=== PATIENT | female | born 1995 | race Caucasian/White ===

== ENCOUNTER 2024-03-10 08:01 | Day surgery (SDC) | payer BC ==
[2024-03-10] MEDS ORDERED: Acetaminophen 500 MG TAB ONE (08:10)
[2024-03-10] MEDS: Acetaminophen 500 MG TAB PO SCH (08:12)
[2024-03-10] MEDS: Iron Sucrose Complex 500 MG in Sodium Chloride 0.9% 250 ML 250 ML IVPB SCH (08:53)
[2024-03-10 14:18] VITALS: BP 105/61; TEMP 98.1
== END 2024-03-10 14:19 | disposition home or self-care (01) ==
LOC: ONC/OP 08:01
PROVIDERS: ATTEND Advanced Practice Midwife
DX: O99.013 Anemia complicating pregnancy, third trimester (principal); O99.283 Endocrine, nutritional and metabolic diseases complicating pregnancy, third trimester; E03.9 Hypothyroidism, unspecified; E28.2 Polycystic ovarian syndrome; O99.891 Other specified diseases and conditions complicating pregnancy; R79.0 Abnormal level of blood mineral; Z3A.34 34 weeks gestation of pregnancy; Z79.899 Other long term (current) drug therapy; Z98.890 Other specified postprocedural states; Z79.82 Long term (current) use of aspirin; Z88.2 Allergy status to sulfonamides
CPT/HCPCS: 96365; 96366; J1756; J7050